=== PATIENT | female | born 1965 ===

== ENCOUNTER 2017-04-15 08:33 | Inpatient (IN) | payer MEDICARE, BC ==
--- NOTE | 2017-04-11 20:30 | Pre-op HX & Phy Repo 2 SIG ---
DATE OF ADMISSION: 04/15/2017 HISTORY OF PRESENT ILLNESS: The patient is a 52-year-old female in overall stable health with a malfunctioning Kock pouch continent ileostomy with difficulty with intubation that started acutely in early February 2017, as well as daily incontinence of stool and gas. The patient has a past history of ulcerative colitis that developed in 1981 and underwent proctocolectomy with Nisreen ileostomy in 1984. She underwent surgery to convert her malfunctioning conventional ileostomy to a Kock pouch in 1991. She usually would intubate two to four times a day using a 30-Maldivian Medena catheter and sleeping through the night and had no history of pouchitis. In 2009 she developed prolapse of the nipple valve, which she had to reduce manually including some difficulty with intubation and incontinence. In March 2016, she underwent laparotomy with creation of a new valve and stoma with preservation of her Kock pouch continent ileostomy and temporary catheter gastrostomy. She had a very prolonged ileus and required TPN and upper GI endoscopy revealing some distortion of the stomach from the gastrostomy that was relieved when the catheter was removed. She also had iron and vitamin B12 deficiency treated with replacement at that time. She had been doing well without any difficulties until early February 2017 when she could not catheterize for several days and developed nausea as well as some incontinence. C. difficile toxin was negative. CT scan was not helpful and pouchogram was negative. The patient, however, has continued to have these difficulties despite a pouch endoscopy performed on 03/02/2017, in [place] that showed no inflammation and the valve at that time appeared normal. The patient is going to undergo endoscopy of her pouch and surgical revision of her pouch as indicated. PAST MEDICAL HISTORY/MEDICATIONS: The patient has depression and bipolar disorder in the past and takes Lexapro 20mg daily and Provigil 200mg daily. She also has a bout of respiratory infection once a year and at those times uses Advair Diskus 100/50 mcg dose and ProAir HFA 90 mcg and Tessalon Perles 100 mg as needed. OPERATIONS: In addition to the above, she has undergone right salpingo-oophorectomy for a large ovarian cyst in 1988. ALLERGIES TO MEDICATIONS: None. REVIEW OF SYSTEMS: Bipolar disorder and depression, bulging cervical disk at C5-C6 and C6-C7 without impingement. Right trapezius rotator cuff injury in 2001, intermittent episodes of upper respiratory infections, thyroiditis in 2013. PHYSICAL EXAMINATION: VITAL SIGNS: The patient is 5 feet 2 inches and approximately 165 pounds. [place] and will be examined upon arrival and dictated separately. IMPRESSION: 1. 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 History of ulcerative colitis. 3. History of bipolar disorder and depression. 4. History of intermittent upper respiratory infections. 5. Status post multiple abdominal operations. 5.1. Proctocolectomy and Nisreen ileostomy in 1984. 5.2. Right salpingo-oophorectomy for ovarian cyst in 1988. 5.3. Kock pouch continent ileostomy in 1991. 5.4. Revision of Kock pouch with creation of new valve and stoma and temporary catheter gastrostomy on 04/05/2016. DISCUSSION: I have had a full discussion with the patient regarding the nature of her condition, the nature of the pouch endoscopy, which she has been through before without requiring any anesthesia or sedation, as well as the potential need for surgical revision to revise the slipped valve with preservation of her Kock pouch, which has a capacity of 750 mL. I will have another detailed discussion in person with the patient when she [place]. Misael Martin M.D. DR: KELLEN JOB#: [id number] CC: AURELIA
[~2017-04-15] VITALS: Ht 157.5 cm; Wt 72.6 kg
[~2017-04-15 08:33] MED LIST: ADVAIR 100-501 EACH INH; CLOBETASOL EMOL15 GM TP; COENZYME Q-10200 MG PO; COMPAZINE5 MG PO; DEPAKOTE125 MG PO; GUAIFENESIN DM118 M1 ORAL; LEXAPRO20 MG ORAL; MODAFINIL100 MG ORAL; PROAIR HFA8.5 GM INH; PYRIDOXINE HCL50 MG ORAL; TESSALON PERLE100 MG ORAL; TRANSDERM-SCOP1.5 MG TD; VITAMIN D1000 UNI1 ORAL
[2017-04-15 09:39] LABS: BASOPHILS % (AUTO) 0.8 % (0.0-2.0); EOSINOPHILS % (AUTO) 1.2 % (0.0-3.0); LYMPHOCYTES % (AUTO) 29.1 % (20.0-45.0); MEAN CORPUSCULAR HEMOGLOBIN 29.8 PG (27.0-31.0); MEAN CORPUSCULAR HGB CONC 31.9 G/DL (32.0-36.0); MEAN CORPUSCULAR VOLUME 93 FL (80-99); MEAN PLATELET VOLUME 6.2 FL (6.5-10.1); MONOCYTES % (AUTO) 7.4 % (1.0-10.0); NEUTROPHILS % (AUTO) 61.5 % (45.0-75.0); PLATELET COUNT 257 K/UL (150-450); RED BLOOD COUNT 4.52 M/UL (4.20-5.40); RED CELL DISTRIBUTION WIDTH 11.3 % (11.6-14.8); WHITE BLOOD COUNT 3.9 K/UL (4.8-10.8)
[2017-04-15 09:42] VITALS: BP 115/71
[2017-04-15 09:50] LABS: INR 1.1 (0.9-1.1)
[2017-04-15 09:54] LABS: ALANINE AMINOTRANSFERASE 13 U/L (3-33); ALBUMIN/GLOBULIN RATIO 1.3 (1.0-2.7); ANION GAP 11 (5-15); ASPARTATE AMINO TRANSFERASE 19 U/L (5-40); CALCIUM 9.9 mg/dL (8.6-10.2); CARBON DIOXIDE 28 mEQ/L (20-30); CHLORIDE 99 mEQ/L (98-107); CREATININE 0.9 mg/dL (0.5-0.9); GLOMERULAR FILTRATION RATE > 60 mL/min (>60); HEMOLYSIS 3; SODIUM 138 mEQ/L (135-145); TOTAL PROTEIN 7.7 g/dL (6.6-8.7)
[2017-04-15 09:55] LABS: HEMOLYSIS 3; IRON 137 ug/dL (37-145); TOTAL IRON BINDING CAPACITY 303 ug/dL (250-400)
[2017-04-15 10:05] LABS: FERRITIN 372 ng/mL (13-150)
[2017-04-15] MEDS ORDERED: MULTIVITAMINS1 EAC2 ORAL (10:07)
[2017-04-15] MEDS ORDERED: VITAMIN E OIL-V52 M1 PO (10:07)
[2017-04-15] MEDS ORDERED: CLOBETASOL EMOL15 GM TP (10:07)
[2017-04-15] MEDS ORDERED: VITAMIN C500 MG/11 PO (10:07)
[2017-04-15] MEDS ORDERED: ATORVASTATIN CA10 MG ORAL (10:07)
--- NOTE | 2017-04-15 11:25 | General Progress Note ---
Progress Note Progress Note H&P dictated. To have pouch endoscopy, prep for surgery in AM for probable Kock Pouch slipped valve Iron, ferritin all labs okay x B12 308 ([phone]) - will give B12 1000mcg IM x 1 WBC 3900 DIANE GREENE Apr 15, 2017 11:25
--- NOTE | 2017-04-15 11:25 | Pre-Procedure Note/Attestation ---
Pre-Procedure Note/Attestation Complete Prior to Procedure Planned Procedure: not applicable Procedure Narrative: Kock pouch endoscopy Indications for Procedure Pre-Operative Diagnosis: Malfunctioning Kock Pouch Attestation I attest that I discussed the nature of the procedure; its benefits; risks and complications; and alternatives (and the risks and benefits of such alternatives ), prior to the procedure, with the patient (or the patient's legal auto service representative). I attest that, if there was a reasonable possibility of needing a blood transfusion, the patient (or the patient's legal auto service representative) was given the [facility] Services standardized written summary, pursuant to the [place] Blood Safety Act ([place] Health and Safety Code # 1645, as amended). I attest that I re-evaluated the patient just prior to the surgery and that there has been no change in the patient's H&P, except as documented below:none DIANE GREENE Apr 15, 2017 11:25
[2017-04-15 11:54] VITALS: BP 113/69
[2017-04-15] MEDS ORDERED: Heparin 2000 units/Ns 1000ml INJ ONE (12:00)
[2017-04-15] MEDS ORDERED: Lidocaine 1% Plain 30 ml INJ ONE (12:00)
[2017-04-15] MEDS ORDERED: Vitamin B12 1000mcg/ml Inj IM ONE (12:00)
--- NOTE | 2017-04-15 12:25 | Brief Operative Note ---
Immediate Post Operative Note Operative Note Pre-op Diagnosis: Malfunctioning Kock Pouch Procedure: Kock pouch endoscopy Post-op Diagnosis: Kock Pouch slipped valve Post-op Diagnosis: same as pre-op Findings: consistent w/pre-op dx studies Surgeon: lorna Anesthesiologist: kane Anesthesia: other - none Specimen: none Complications: none Condition: stable Fluids: none Estimated Blood Loss: none Drains: other - 28 ferguson to Kock Pouch Implant(s) used?: DIANE Gracia Apr 15, 2017 12:25
[2017-04-15 12:43] LABS: APPEARANCE,URINE CLEAR; KETONES,URINE NEGATIVE (NEGATIVE); LEUKOCYTE ESTERASE ,URINE NEGATIVE (NEGATIVE); NITRITE,URINE NEGATIVE (NEGATIVE); PH,URINE 5 (4.5-8.0); PROTEIN,URINE NEGATIVE (NEGATIVE); UROBILINOGEN,URINE NORMAL MG/DL (0.0-1.0)
[2017-04-15] MEDS: Neomycin Sulfate 500mg Tab ORAL SCH ×3 (12:54→19:45)
--- NOTE | 2017-04-15 14:14 | Diagnostic Imaging Report ---
Indication: Dyspnea Comparison: 04/04/16 A single view chest radiograph was obtained. Findings: Bones are osteopenic. Lungs are clear. Heart size is normal. There is a left upper arm PICC line in the position. Impression: No acute disease
--- NOTE | 2017-04-15 14:21 | Diagnostic Imaging Report ---
Indication: vermin exterminator venous access Findings: After the indications, procedure, risks, complications, and alternatives of the procedure were explained, written informed consent was obtained. The left upper extremity was prepped with alcohol. All elements of maximal sterile barrier technique were followed including usage of a cap, mask, sterile gown, sterile gloves, hand hygiene and a large sterile sheet. Sonographic evaluation of the upper extremity was performed demonstrating a patent and compressible basilic vein. Access was obtained under real-time ultrasound guidance and digital image was saved and archived. An .018 wire was introduced. Needle exchanged for a 5 Tongan peel-away sheath. Measurements were obtained. A 5 Tongan dual-lumen Power PICC line catheter was cut to 40 cm and introduced over the wire. Peel-away sheath and wire were removed.Catheter was secured to the skin using 2-0 Prolene suture. Both ports aspirate and flush easily. Fluoroscopic Images show distal tip in the superior vena cava. Total fluoroscopic time 0.2 minutes. Impression: Successful placement of an upper extremity PICC line catheter
[2017-04-15] MEDS ORDERED: Tubing IV Secondary IV ONE (14:32)
[2017-04-15] MEDS ORDERED: NS Irrig 1000ml ONE (14:32)
[2017-04-15] MEDS ORDERED: NS 275ml ONE (14:32)
[2017-04-15 16:00] VITALS: BP 121/76
[2017-04-15] MEDS: D5 1/2NS w/KCl 20mEq 1,000 ML IV SCH (17:57)
[2017-04-15 20:12] VITALS: BP 112/70
--- NOTE | 2017-04-15 21:45 | Pre-op HX & Phy Repo 2 SIG ---
DATE OF ADMISSION: 04/15/2017 HISTORY OF PRESENT ILLNESS: The [place] now [place]. Please see previously dictated history. She continues to have intermittent difficulty with intubation of her Kock pouch continent ileostomy as well as incontinence of some stool and gas. PHYSICAL EXAMINATION: GENERAL: She is well developed and well nourished, in no distress, 5 feet 2 inches, 165 pounds. HEENT: Within normal limits. LUNGS: Clear. HEART: Regular rhythm. BREASTS: Without masses. ABDOMEN: Soft. There is a long midline incision scar and the stoma of the Kock pouch is somewhat high in the right lower quadrant. There is no evidence of abdominal wall hernia. PELVIC: Per primary care physician recently. RECTAL: Status post proctectomy. EXTREMITIES: Without edema or varicosities. Pulses 2+ femoral to pedal bilaterally. NEUROLOGIC: Physiologic. IMPRESSION: 1. Malfunctioning Kock pouch continent ileostomy with difficulty with intubation and incontinence. 2. History of ulcerative colitis. 3. History of bipolar disorder and depression. 4. History of intermittent yearly upper respiratory infections. 5. Status post multiple abdominal operations. 5.1. Proctocolectomy and Nisreen ileostomy in 1984. 5.2. Right salpingo-oophorectomy for ovarian cyst in 1988. 5.3. Kock pouch continent ileostomy in 1991. 5.4. Revision of Kock pouch with creation of new valve and stoma with temporary catheter gastrostomy 04/05/2016. PLAN AND DISCUSSION: The patient is going to undergo Kock pouch endoscopy, which will make the definitive diagnosis that she has a slipped or dessuscepted nipple valve. I have discussed with her the surgical options including laparotomy and probable takedown of the stoma and recreation and stabilization of the existing nipple valve of her Kock pouch. Her pouch has the capacity of 750 mL and if necessary a new valve will be created with relocation of the stoma if necessary and catheter gastrostomy. I have discussed the nature of the surgical options, indications, alternatives, and risks including bleeding, infection, injury to adjacent structures or organs, recurrent difficulties with the pouch or stoma that could lead to the need for additional surgery, deep vein thrombosis despite prophylaxis, etc. All questions have been answered. The patient understands and agrees to proceed. Don Torsten Martin DR: ANDRE JOB#: [id number] CC:
[2017-04-15] MEDS: Ampicillin/Sulbactam Sod 3 GM in NS 110 ML IV SCH (23:16)
[2017-04-15] MEDS: metroNIDAZOLE 500mg 100 ML IV SCH (23:16)
--- NOTE | 2017-04-15 23:45 | Procedure Note ---
DATE OF PROCEDURE: 04/15/2017 ENDOSCOPY REPORT ENDOSCOPIST: Misael Martin M.D. ANESTHESIA: None. SEDATION: None. PREENDOSCOPY DIAGNOSES: 1. Malfunctioning Kock pouch continent ileostomy with difficulty with intubation and incontinence. 2. History of ulcerative colitis. 3. Status post multiple abdominal operations. 3.1. Proctocolectomy and Nisreen ileostomy in 1984. 3.2. Right salpingo-oophorectomy for ovarian cyst in 1988. 3.3. Kock pouch continent ileostomy in 1991. 3.4. Revision of Kock pouch with creation of new valve and stoma with temporary catheter gastrostomy on 04/05/2016. POSTENDOSCOPY DIAGNOSES: 1. Malfunctioning Kock pouch continent ileostomy with difficulty with intubation and incontinence. 2. History of ulcerative colitis. 3. Status post multiple abdominal operations. 3.1. Proctocolectomy and Nisreen ileostomy in 1984. 3.2. Right salpingo-oophorectomy for ovarian cyst in 1988. 3.3. Kock pouch continent ileostomy in 1991. 3.4. Revision of Kock pouch with creation of new valve and stoma with temporary catheter gastrostomy on 04/05/2016. ENDOSCOPY PERFORMED: Kock pouch endoscopy. FINDINGS: A partially slipped nipple valve. DESCRIPTION OF PROCEDURE: The patient was positioned supine in the GI lab without any sedation or anesthesia given or required. Using a GIF-P140 endoscope, the stoma in the right lower quadrant was entered. There is elongation and redundancy of the access segment with redundant mucosal folds within the distal access segment and the valve segment. The distance to the tip of the valve is 11 cm, at least 3 to 4 cm redundant. The pouch was distensible and of very large capacity. The mucosa appears normal. Retroflexed views revealed a partially slipped valve, which at times slips more on the antimesenteric border and other times looks circumferentially formed, but measuring only 2 to 3 cm instead of the minimum 5 cm. Withdrawal views confirmed the above findings. After removal of the endoscope, I was able to insert a 28-[place]izen [place] Cuellar into the pouch for decompression and secured it to the skin with tape and connected to a gravity drainage bag. The patient will be prepared for laparotomy and revision of the Kock pouch in the morning. The patient tolerated the endoscopy well. Misael Martin M.D. DR: ANDRE JOB#: [id number] CC: AURELIA
[2017-04-16] VITALS (15 sets, daily range): BP systolic 99–123; BP diastolic 56–77
[2017-04-16] MEDS: D5 1/2NS w/KCl 20mEq 1,000 ML IV SCH ×2 (04:00→14:00)
[2017-04-16] MEDS: Dyna-Hex 2% Top Sol 8oz TOPIC SCH ×2 (05:31→19:54)
[2017-04-16] MEDS: Ampicillin/Sulbactam Sod 3 GM in NS 110 ML IV SCH ×4 (05:32→23:15)
[2017-04-16] MEDS: metroNIDAZOLE 500mg 100 ML IV SCH ×4 (05:32→23:15)
[2017-04-16] MEDS ORDERED: Bacitracin 50000 Units Vial ONE (07:05)
[2017-04-16] MEDS ORDERED: NeoSporin Gu Irrig 1ml Amp IRRIG ONE (07:05)
[2017-04-16] MEDS ORDERED: Heparin 5000 units/ml inj SUBQ ONE ×2 (08:00→10:00)
[2017-04-16] MEDS: Modafinil 100mg tab ORAL SCH (08:38)
--- NOTE | 2017-04-16 09:06 | Pre-Procedure Note/Attestation ---
Pre-Procedure Note/Attestation Complete Prior to Procedure Planned Procedure: not applicable Procedure Narrative: laparotomy with revision of Kock Pouch, possible gastrostomy Indications for Procedure Pre-Operative Diagnosis: Malfunctioning Kock Pouch Attestation I attest that I discussed the nature of the procedure; its benefits; risks and complications; and alternatives (and the risks and benefits of such alternatives ), prior to the procedure, with the patient (or the patient's legal fuels sales representative). I attest that, if there was a reasonable possibility of needing a blood transfusion, the patient (or the patient's legal fuels sales representative) was given the [facility] standardized written summary, pursuant to the [place] Blood Safety Act ([place] Health and Safety Code # 1645, as amended). I attest that I re-evaluated the patient just prior to the surgery and that there has been no change in the patient's H&P, except as documented below:none DIANE GREENE Apr 16, 2017 09:06
[2017-04-16] MEDS ORDERED: Dexamethasone 4mg/ml vial ONE (10:00)
[2017-04-16] MEDS ORDERED: Propofol 1,000mg/ 100ml btl IV ONE (10:00)
[2017-04-16] MEDS ORDERED: Neostigmine 1mg/ml 10ml Inj ONE (10:00)
[2017-04-16] MEDS ORDERED: LR 1000ml ONE (10:00)
[2017-04-16] MEDS ORDERED: Midazolam 2mg/2ml Inj ONE (10:00)
[2017-04-16] MEDS ORDERED: fentaNYL 100 mcg/2 mL IV ONE (10:00)
[2017-04-16] MEDS ORDERED: Glycopyrrolate 0.2mg/ml 1ml Vial ONE (10:00)
[2017-04-16] MEDS ORDERED: NS Irrig 1000ml ONE (10:00)
[2017-04-16] MEDS ORDERED: Zemuron 50mg/5ml Inj IV ONE (10:00)
[2017-04-16] MEDS ORDERED: Lidocaine 1% MPF 10mg/ml 5ml ONE (10:00)
[2017-04-16] MEDS ORDERED: LR 1000ml 1,000 ML IVLG SCH (10:44)
--- NOTE | 2017-04-16 10:44 | Anethesia Preoperative Eval ---
Anesthesia Pre-op PMH/ROS General Date of Evaluation: Apr 16, 2017 Time of Evaluation: 10:06 Anesthesiologist: Ajit ASA Score: ASA 3 Mallampati Score Class I : Soft palate, uvula, fauces, pillars visible Class II: Soft palate, uvula, fauces visible Class III: Soft palate, base of uvula visible Class IV: Only hard plate visible Mallampati Classification: Class II Surgeon: Veronica Diagnosis: Malfxn Jaquez Pouch Surgical Procedure: Laparotomy, Revision Jaquez Pouch Anesthesia History: none Family History: no anesthesia problems Allergies: Coded Allergies: No Known Allergies (Unverified , 04/04/16) no known allergies Medications: see eMAR Past Medical History Cardiovascular: Reports: other - HL Pulmonary: Reports: other - Bronchitis Gastrointestinal/Genitourinary: Reports: other - Colitis, Jaquez Pouch, Fatty Liver Other: obesity - BMI 30 PSxH Narrative: Appendectomy, Jaquez Pouch Anesthesia Pre-op Phys. Exam Physician Exam Last Vital Signs Date Time Temp Pulse Resp B/P (MAP) Pulse Ox O2 Delivery O2 Flow Rate FiO2 04/16/17 08:00 97.8 55 18 99/56 99 Room Air Constitutional: NAD Neurologic: CN 2-12 intact Cardiovascular: RRR Respiratory: CTA Gastrointestinal: S/NT/ND Airway Exam Mallampati Score: Class II MO: limited ROM: limited Teeth: intact Anesthesia Pre-op A/P Risk Assessment & Plan Assessment: ASA 3 Plan: GA, BIS, Glidescope Status Change Before Surgery: No Pre-Antibiotics Drug: Unasyn 3 Grams, Flagyl 500 mg IV Given Within 1 Hr of Incision: Yes Time Given: 12:00 Gwyn Fong MD Apr 16, 2017 10:44
[2017-04-16] MEDS ORDERED: Ketorolac 30mg Inj IV PRN (10:45)
[2017-04-16] MEDS ORDERED: DiphenhydrAMINE 50mg/ml Inj IVP PRN ×2 (10:45→14:30)
[2017-04-16] MEDS ORDERED: Midazolam 2mg/2ml Inj IVP PRN (10:45)
[2017-04-16] MEDS ORDERED: fentaNYL 100 mcg/2 mL IV PRN (10:45)
[2017-04-16] MEDS ORDERED: Norco 5mg/325mg tab ORAL PRN (10:45)
[2017-04-16] MEDS ORDERED: Norco 7.5mg/325mg tab ORAL PRN (10:45)
[2017-04-16] MEDS ORDERED: Meperidine 25mg/0.5ml Inj (FOR RIGORS ONLY) IV PRN (10:45)
[2017-04-16] MEDS ORDERED: oxyCODONE HCL/Acetaminophen 5/325mg ORAL PRN (10:45)
[2017-04-16] MEDS ORDERED: Metoclopramide 10mg/2ml Inj IVP PRN (10:45)
[2017-04-16] MEDS ORDERED: Atropine Inj 1mg/10ml Syr IV PRN (10:45)
[2017-04-16] MEDS ORDERED: Hydromorphone 0.5mg/0.5ml inj IVP PRN (10:45)
[2017-04-16] MEDS ORDERED: LORazepam Inj 2mg/ml 1ml IV PRN (10:45)
[2017-04-16] MEDS ORDERED: Ketorolac 60mg Inj IV PRN (10:45)
--- NOTE | 2017-04-16 10:45 | Immediate Post-Op Evaluation ---
Immediate Post-Op Evalulation Immediate Post-Op Evalulation Procedure: Laparotomy, Revision Jaquez Pouch Date of Evaluation: Apr 16, 2017 Time of Evaluation: 14:30 IV Fluids: 1600 LR Blood Products: 0 Estimated Blood Loss: 50 Urinary Output: 200 Blood Pressure Systolic: 114 Blood Pressure Diastolic: 81 Pulse Rate: 77 Respiratory Rate: 16 O2 Sat by Pulse Oximetry: 100 Temperature (Fahrenheit): 97.8 Pain Score (1-10): 2 Nausea: No Vomiting: No Complications 0 Patient Status: awake, reacts, patent, none Drug: Unasyn 3 Grams, Flagyl 500 mg IV Given Within 1 Hr of Incision: Yes Time Given: 12:00 Gwyn Fong MD Apr 16, 2017 10:45
[2017-04-16] MEDS ORDERED: metroNIDAZOLE 500mg 100 ML IV SCH (12:00)
[2017-04-16] MEDS ORDERED: Ampicillin/Sulbactam Sod 3 GM in NS 110 ML IV SCH (14:00)
--- NOTE | 2017-04-16 14:26 | Brief Operative Note ---
Immediate Post Operative Note Operative Note Pre-op Diagnosis: Malfunctioning Kock Pouch Procedure: laparotomy and revision of Kock pouch; gastrostomy Post-op Diagnosis: malfunctioning Kock pouch Post-op Diagnosis: same as pre-op Findings: consistent w/pre-op dx studies Surgeon: lorna Wildland Firefighter: raleigh Anesthesiologist: sarika Anesthesia: general Specimen: yes - Kock pouch stoma Complications: none Condition: stable Fluids: see anesthesia record Estimated Blood Loss: volume - 100ml Drains: other - 28 ferguson Kock pouch; 18 fr gastrostomy Implant(s) used?: No DIANE GREENE Apr 16, 2017 14:26
[2017-04-16] MEDS ORDERED: PCA HYDROmorphone 1mg/ml 30 ML IV PRN (14:30)
[2017-04-16] MEDS ORDERED: LORazepam 1mg tab SL PRN ×2 (14:30)
[2017-04-16] MEDS ORDERED: PCA Education Pamphlet MISC ONE (14:30)
[2017-04-16] MEDS ORDERED: Naloxone 0.4mg/ml Inj IVP PRN (14:30)
[2017-04-16] MEDS ORDERED: Rate Change PCA 1 Each MISC PRN (14:30)
[2017-04-16] MEDS ORDERED: Tubing IV Secondary IV ONE (16:54)
[2017-04-16] MEDS ORDERED: Acetaminophen 650mg/20.3ml GT PRN (18:00)
[2017-04-16] MEDS: D5 1/4NS w/KCl 20mEq 1,000 ML IV SCH (18:33)
[2017-04-16] MEDS: PCA shift volume MISC SCH (19:07)
[2017-04-16] MEDS ORDERED: Dyna-Hex 2% Top Sol 8oz TOPIC SCH (21:00)
[2017-04-17] VITALS (7 sets, daily range): BP systolic 126–139; BP diastolic 56–83
--- NOTE | 2017-04-17 00:30 | Operative Note - Dictated ---
DATE OF OPERATION: 04/16/2017 SURGEON: Misael Martin M.D. STRAIGHTENING MACHINE OPERATOR SURGEON: Anirudh Herrera M.D. ANESTHESIOLOGIST: Gwyn Fong M.D. TYPE OF ANESTHESIA: General endotracheal. PREOPERATIVE DIAGNOSES: 1. Malfunctioning Kock pouch continent ileostomy with dessusception of the nipple valve and redundant access segment. 2. History of ulcerative colitis. 3. Status post multiple abdominal operations. 3.1. Proctocolectomy and Nisreen ileostomy in 1984. 3.2. Right salpingo-oophorectomy for ovarian cyst in 1988. 3.3. Kock pouch continent ileostomy in 1991. 3.4. Revision of Kock pouch with creation of new valve and stoma 04/05/2016 POSTOPERATIVE DIAGNOSES: 1. Malfunctioning Kock pouch continent ileostomy with dessusception of the nipple valve and redundant access segment. 2. History of ulcerative colitis. 3. Status post multiple abdominal operations. 3.1. Proctocolectomy and Nisreen ileostomy in 1984. 3.2. Right salpingo-oophorectomy for ovarian cyst in 1988. 3.3. Kock pouch continent ileostomy in 1991. 3.4. Revision of Kock pouch with creation of new valve and stoma 04/05/2016 OPERATION PERFORMED: Laparotomy with revision of Kock pouch slipped valve and catheter gastrostomy and revision of the stoma. DESCRIPTION OF PROCEDURE: The patient was taken to the operating room and under general endotracheal anesthesia with sequential compression device stockings in place and having received intravenous antibiotics and subcutaneous heparin, she was prepped and draped in the usual fashion. Previous midline incision was reopened initially from just above the umbilicus to the pubis, but because of severe diffuse adhesions the incision was extended into the epigastrium excising the skin scar. Prolonged dissection of adhesions was required to finally liberate the pouch from the pelvis where it was densely adherent to the bladder. The bladder and ureters were protected and avoided. The stoma in the right lower quadrant was circumscribed with a transversely oriented elliptical incision and brought down into the abdominal cavity. A slight disruption of the access segment was present, which was closed with continuous 2-0 PDS locking suture. A 28-Lebanese Cuellar catheter was manipulated into the pouch. It was obvious that the access segment was quite redundant. A dissection revealed the afferent bowel. A pouch enterotomy was created between stay sutures along the previous pouch suture line. Now the nipple valve could be grasped with [place] clamps and reformed measuring 5.5 cm. Two rows of kristi using the PI 55 stapling device with 4.8 mm kristi were placed 90 degrees away from the mesentery. Then, a separate small pouch enterotomy was created and the stapler placed with the lower blade through the enterotomy and into the lumen of the valve and then the stapler fired to staple the valve to the anterior pouch wall. The small enterotomy was closed with continuous full thickness 2-0 chromic locking suture, followed by imbricating 3-0 silk sutures. The pouch enterotomy was closed with continuous 2-0 chromic full thickness locking suture. With the afferent bowel manually occluded, the pouch was distended with 550 mL of saline. There was no extravasation. When the catheter was removed, there was no incontinence. The catheter was reintroduced and the pouch decompressed. The enterotomy closure was now closed with a second layer of interrupted 3-0 silk imbricating sutures. The access segment and stoma brought through the abdominal wall at the same location and the pouch anchored to the peritoneum with 3-0 Vicryl. The stoma site was narrowed medially with a 4-0 Monocryl subcuticular suture. Then the redundancy of the access segment was excised and the new stoma primarily matured with continuous 2-0 chromic locking suture starting at the 3 and 9 o'clock positions. The 28-Lebanese Cuellar was appropriately positioned in the pouch, marked at the level of the stoma with a 3-0 silk and then the catheter sutured to the skin with two sutures of 2-0 silk. It was flushed and connected to a gravity drainage bag. In view of the prolonged dissection, I felt decompression with a catheter gastrostomy was required. Through a separate stab incision in the left upper quadrant, an 18-Lebanese Cuellar catheter was brought through the abdominal wall. Previous gastrostomy site was taken down. A new site was chosen more proximally on the fundus of the stomach and the 18-Leb[place] Cuellar catheter introduced between two concentric 2-0 chromic pursestring sutures with the balloon inflated, positioned in the fundus, and the stomach sutured to the anterior abdominal wall with multiple interrupted 3-0 silk sutures. The catheter was flushed and connected to a gravity drainage bag. The catheter was sutured to the skin with a 2-0 silk suture. The abdomen and pelvis were inspected and hemostasis was secure. The upper abdomen was concealed by adhesions and there was no abnormality in the pelvis to palpation. The midline incision was then closed in one layer with continuous #1 Prolene inverting the knots. Subcutaneous tissues were irrigated with antibiotic solution and the abdominal wall had been protected throughout the procedure with antibiotic soaked lap sponges. The skin was closed with kristi. Dry sterile dressings were applied. Final sponge and needle counts were correct. The patient tolerated the procedure well and left the operating room in stable condition. Misael Martin M.D. DR: aMnuel JOB#: [id number] CC: AURELIA
[2017-04-17 05:01] LABS: BASOPHILS % (AUTO) 0.1 % (0.0-2.0); MEAN CORPUSCULAR HEMOGLOBIN 31.6 PG (27.0-31.0); MEAN CORPUSCULAR VOLUME 93 FL (80-99); MEAN PLATELET VOLUME 6.2 FL (6.5-10.1); MONOCYTES % (AUTO) 7.7 % (1.0-10.0); NEUTROPHILS % (AUTO) 83.2 % (45.0-75.0); PLATELET COUNT 184 K/UL (150-450); RED BLOOD COUNT 3.83 M/UL (4.20-5.40); RED CELL DISTRIBUTION WIDTH 11.5 % (11.6-14.8); WHITE BLOOD COUNT 10.3 K/UL (4.8-10.8)
[2017-04-17] MEDS: Ampicillin/Sulbactam Sod 3 GM in NS 110 ML IV SCH ×3 (05:20→17:54)
[2017-04-17] MEDS: metroNIDAZOLE 500mg 100 ML IV SCH ×3 (05:20→17:54)
[2017-04-17] MEDS: D5 1/4NS w/KCl 20mEq 1,000 ML IV SCH ×2 (05:21→17:54)
[2017-04-17 05:41] LABS: ANION GAP 10 (5-15); CALCIUM 8.7 mg/dL (8.6-10.2); CARBON DIOXIDE 26 mEQ/L (20-30); CHLORIDE 105 mEQ/L (98-107); CREATININE 0.7 mg/dL (0.5-0.9); GLOMERULAR FILTRATION RATE > 60 mL/min (>60); HEMOLYSIS 1; POTASSIUM 4.1 mEQ/L (3.4-4.9); SODIUM 141 mEQ/L (135-145)
[2017-04-17] MEDS: PCA shift volume MISC SCH ×2 (07:00→19:00)
[2017-04-17] MEDS: Modafinil 100mg tab ORAL SCH (08:31)
--- NOTE | 2017-04-17 11:01 | 48 Hour Post Anesthesia Eval ---
Post Anesthesia Evaluation Procedure: Laparotomy, Revision Jaquez Pouch Date of Evaluation: Apr 17, 2017 Time of Evaluation: 11:00 Blood Pressure Systolic: 136 0: 72 Pulse Rate: 68 Respiratory Rate: 20 Temperature (Fahrenheit): 97.6 O2 Sat by Pulse Oximetry: 98 Airway: patent Nausea: No Vomiting: No Pain Intensity: 3 Hydration Status: adequate Cardiopulmonary Status: stable Mental Status/LOC: patient returned to baseline Follow-up Care/Observations: n/a Post-Anesthesia Complications: none Follow-up care needed: N/A EMBER HILL M.D. Apr 17, 2017 11:01
[2017-04-17] MEDS ORDERED: TransDerm Scop 1mg/72HR Patch TDERMAL STA (12:30)
[2017-04-17] MEDS ORDERED: Naloxone 0.4mg/ml Inj IVP PRN (12:33)
--- NOTE | 2017-04-17 12:36 | General Progress Note ---
Progress Note Progress Note AVSS c/o nausea despite Zofran + Compazine (Reglan interacts with psych meds). Pain controlled with dilaudid CHANGE CONTROL SPECIALIST no basal Chest - decreased expansion Cor - reg rhythm Abdomen distended, incision clean, stoma pink 12 hrs overnight: urine 500 Gastrostomy 60 Kock pouch ileo 5 serosang WBC 10,300 Hgb 12.1 BUN 10 Cr 0.7 IMp. Atelectasis Ileus Nausaa Plan: NPO add scopolamine transderm for nausea f/u labs mobilize DIANE GREENE Apr 17, 2017 12:36
[2017-04-17] MEDS ORDERED: Rate Change PCA 1 Each MISC PRN (12:45)
[2017-04-17] MEDS ORDERED: TransDerm Scop 1.5mg/72HR Patch TDERMAL STA (13:17)
[2017-04-17] MEDS: TransDerm Scop 1mg/72HR Patch TDERMAL SCH (13:30)
[2017-04-17] MEDS ORDERED: DiphenhydrAMINE 50mg/ml Inj IVP PRN (14:30)
[2017-04-17] MEDS: PCA HYDROmorphone 1mg/ml 30 ML IV PRN (14:57)
[2017-04-17] MEDS: Dyna-Hex 2% Top Sol 8oz TOPIC SCH (21:23)
[2017-04-18] MEDS: Ampicillin/Sulbactam Sod 3 GM in NS 110 ML IV SCH ×4 (00:17→17:22)
[2017-04-18] MEDS: metroNIDAZOLE 500mg 100 ML IV SCH ×4 (00:17→17:22)
[2017-04-18 00:47] VITALS: BP 131/83
[2017-04-18 04:00] VITALS: BP 130/81
[2017-04-18] MEDS: D5 1/4NS w/KCl 20mEq 1,000 ML IV SCH ×2 (05:29→17:22)
[2017-04-18 05:49] LABS: BASOPHILS % (AUTO) 0.2 % (0.0-2.0); EOSINOPHILS % (AUTO) 0.1 % (0.0-3.0); MEAN CORPUSCULAR HEMOGLOBIN 30.3 PG (27.0-31.0); MEAN CORPUSCULAR HGB CONC 32.8 G/DL (32.0-36.0); MEAN CORPUSCULAR VOLUME 92 FL (80-99); MEAN PLATELET VOLUME 5.9 FL (6.5-10.1); MONOCYTES % (AUTO) 6.1 % (1.0-10.0); NEUTROPHILS % (AUTO) 84.5 % (45.0-75.0); PLATELET COUNT 161 K/UL (150-450); RED BLOOD COUNT 3.77 M/UL (4.20-5.40); RED CELL DISTRIBUTION WIDTH 11.7 % (11.6-14.8); WHITE BLOOD COUNT 9.9 K/UL (4.8-10.8)
[2017-04-18] MEDS: PCA shift volume MISC SCH ×2 (07:00→19:00)
[2017-04-18 07:10] LABS: ANION GAP 10 (5-15); CALCIUM 9.1 mg/dL (8.6-10.2); CARBON DIOXIDE 29 mEQ/L (20-30); CHLORIDE 101 mEQ/L (98-107); CREATININE 0.6 mg/dL (0.5-0.9); GLOMERULAR FILTRATION RATE > 60 mL/min (>60); SODIUM 140 mEQ/L (135-145)
--- NOTE | 2017-04-18 07:21 | General Progress Note ---
Progress Note Progress Note AVSS Nausea improved with Zofran, scop. transderm and Compazine. Chest cleat with decreased expansion Abdomen distended, soft, stoma pink, incision clean Urine 2450 Gastrostomy 150 Kock pouch ileo - scant WBC 9900 Hgb 11.4 BUN 4 Cr 0.6 Imp. Ileus Plan: Increase Compazine to 10mg IV q6h prn Add Torado 15mg IV q6h to reduce need for Dilaudid and decrease nausea PT mobility protocol NPO f/u labs DIANE GREENE Apr 18, 2017 07:21
[2017-04-18] MEDS ORDERED: Ketorolac 30mg Inj IV PRN (07:30)
[2017-04-18] MEDS ORDERED: Ketorolac 30mg Inj IV ONE (07:45)
[2017-04-18 08:00] VITALS: BP 127/77
[2017-04-18] MEDS: Modafinil 100mg tab ORAL SCH (09:18)
[2017-04-18 11:45] VITALS: BP 112/64
[2017-04-18] MEDS: PCA HYDROmorphone 1mg/ml 30 ML IV PRN (15:04)
[2017-04-18 16:00] VITALS: BP 105/66
[2017-04-18 20:37] VITALS: BP 116/63
[2017-04-18] MEDS: Dyna-Hex 2% Top Sol 8oz TOPIC SCH (20:39)
[2017-04-18] MEDS: Ketorolac 30mg Inj IV PRN (22:21)
[2017-04-19 00:02] VITALS: BP 120/73
[2017-04-19] MEDS: Ampicillin/Sulbactam Sod 3 GM in NS 110 ML IV SCH ×4 (00:14→17:31)
[2017-04-19] MEDS: metroNIDAZOLE 500mg 100 ML IV SCH ×4 (00:14→17:30)
[2017-04-19 04:27] VITALS: BP 113/70
[2017-04-19] MEDS: D5 1/4NS w/KCl 20mEq 1,000 ML IV SCH ×2 (05:13→17:31)
[2017-04-19 05:23] LABS: BASOPHILS % (AUTO) 0.2 % (0.0-2.0); EOSINOPHILS % (AUTO) 0.3 % (0.0-3.0); LYMPHOCYTES % (AUTO) 13.7 % (20.0-45.0); MEAN CORPUSCULAR VOLUME 94 FL (80-99); MEAN PLATELET VOLUME 5.7 FL (6.5-10.1); NEUTROPHILS % (AUTO) 79.8 % (45.0-75.0); PLATELET COUNT 156 K/UL (150-450); RED BLOOD COUNT 3.36 M/UL (4.20-5.40); RED CELL DISTRIBUTION WIDTH 11.4 % (11.6-14.8); WHITE BLOOD COUNT 7.4 K/UL (4.8-10.8)
[2017-04-19 05:50] LABS: ANION GAP 9 (5-15); CALCIUM 8.8 mg/dL (8.6-10.2); CARBON DIOXIDE 32 mEQ/L (20-30); CHLORIDE 99 mEQ/L (98-107); CREATININE 0.6 mg/dL (0.5-0.9); GLOMERULAR FILTRATION RATE > 60 mL/min (>60); HEMOLYSIS 1; POTASSIUM 3.5 mEQ/L (3.4-4.9); SODIUM 140 mEQ/L (135-145)
[2017-04-19] MEDS: PCA shift volume MISC SCH ×2 (07:29→19:00)
[2017-04-19 08:00] VITALS: BP 125/75
[2017-04-19] MEDS: Modafinil 100mg tab ORAL SCH (08:04)
[2017-04-19] MEDS: Ketorolac 30mg Inj IV PRN (09:03)
[2017-04-19] MEDS ORDERED: NS 550ML IV ONE (09:49)
[2017-04-19] MEDS ORDERED: Tubing IV Secondary IV ONE ×2 (09:49→16:05)
[2017-04-19] MEDS ORDERED: NS Irrig 1000ml ONE (09:49)
--- NOTE | 2017-04-19 10:06 | General Progress Note ---
Progress Note Progress Note AVSS Ambulates in hallways with PT assistance/walker Abdomen soft, mildly distended, incision clean, stoma pink Urine 1625 Gastrostomy 1040 Kock pouch ileo 10 serosang WBC 7400 hgb down 10.4 BMP - wnl Imp. Ileus Plan: NPO f/u labs Nexium IV (takes Pepcid BID at home) continue Cuellar - pelvic dissection NOTE: patient likely has clinical peritonitis due to bowel being open for a prolonged period of time during surgery - will give therapeutic course of antibiotics DIANE GREENE Apr 19, 2017 10:06
[2017-04-19] MEDS ORDERED: DiphenhydrAMINE 50mg/ml Inj IVP PRN (10:30)
[2017-04-19] MEDS ORDERED: PCA HYDROmorphone 1mg/ml 30 ML IV PRN (10:30)
[2017-04-19] MEDS ORDERED: Naloxone 0.4mg/ml Inj IVP PRN (10:30)
[2017-04-19] MEDS ORDERED: Rate Change PCA 1 Each MISC PRN (10:30)
[2017-04-19 12:00] VITALS: BP 115/64
[2017-04-19] MEDS: Esomeprazole sodium 40mg vial IVP SCH (12:18)
--- NOTE | 2017-04-19 12:56 | Cardiology Report ---
APPROVED REPORT EKG Measurement Heart [id number] Normal sinus rhythm Normal ECG
[2017-04-19 16:00] VITALS: BP 120/64
[2017-04-19] MEDS ORDERED: Sterile Water Irrig 1000ml IRRIG ONE (16:05)
[2017-04-19 20:05] VITALS: BP 110/55
[2017-04-19] MEDS: Dyna-Hex 2% Top Sol 8oz TOPIC SCH (21:16)
[2017-04-20 00:02] VITALS: BP 116/67
[2017-04-20] MEDS: Ampicillin/Sulbactam Sod 3 GM in NS 110 ML IV SCH ×5 (01:05→23:46)
[2017-04-20] MEDS: metroNIDAZOLE 500mg 100 ML IV SCH ×5 (01:05→23:46)
[2017-04-20 04:02] LABS: BASOPHILS % (AUTO) 0.3 % (0.0-2.0); EOSINOPHILS % (AUTO) 1.3 % (0.0-3.0); LYMPHOCYTES % (AUTO) 23.7 % (20.0-45.0); MEAN CORPUSCULAR HEMOGLOBIN 31.5 PG (27.0-31.0); MEAN CORPUSCULAR HGB CONC 33.7 G/DL (32.0-36.0); MEAN CORPUSCULAR VOLUME 93 FL (80-99); MONOCYTES % (AUTO) 8.4 % (1.0-10.0); NEUTROPHILS % (AUTO) 66.4 % (45.0-75.0); PLATELET COUNT 156 K/UL (150-450); RED BLOOD COUNT 3.13 M/UL (4.20-5.40); RED CELL DISTRIBUTION WIDTH 11.5 % (11.6-14.8); WHITE BLOOD COUNT 4.8 K/UL (4.8-10.8)
[2017-04-20 04:05] VITALS: BP 120/70
[2017-04-20 04:31] LABS: ANION GAP 8 (5-15); CALCIUM 8.9 mg/dL (8.6-10.2); CARBON DIOXIDE 30 mEQ/L (20-30); CHLORIDE 98 mEQ/L (98-107); CREATININE 0.7 mg/dL (0.5-0.9); GLOMERULAR FILTRATION RATE > 60 mL/min (>60); HEMOLYSIS 3; POTASSIUM 3.3 mEQ/L (3.4-4.9); SODIUM 136 mEQ/L (135-145)
[2017-04-20] MEDS: D5 1/4NS w/KCl 20mEq 1,000 ML IV SCH (04:37)
[2017-04-20 04:53] LABS: IRON 43 ug/dL (37-145)
[2017-04-20] MEDS: PCA shift volume MISC SCH ×2 (07:00→19:00)
[2017-04-20] MEDS: Esomeprazole sodium 40mg vial IVP SCH (08:29)
[2017-04-20 08:30] VITALS: BP 117/66
[2017-04-20] MEDS: Modafinil 100mg tab ORAL SCH (08:45)
--- NOTE | 2017-04-20 08:48 | General Progress Note ---
Progress Note Progress Note AVSS Doing well with ambulation, less nausea Abdomen mildly distended, healing nicely Urine 2450 Gastrostomy 350 (down) Kock pouch ileo small amount enteric this AM Hgb down 9.9 K 3.3 Irofn 43 (37-145) Imp. Ileus Anemia with low serum iron Plan: NPO Venofer 100mg IV daily x 5 Increase KCL in IV fluids f/u labs leave Cuellar until tomorrow (diuresing) DIANE GREENE Apr 20, 2017 08:48
[2017-04-20] MEDS ORDERED: PCA HYDROmorphone 1mg/ml 30 ML IV PRN (09:00)
[2017-04-20] MEDS ORDERED: Naloxone 0.4mg/ml Inj IVP PRN (09:00)
[2017-04-20] MEDS ORDERED: DiphenhydrAMINE 50mg/ml Inj IVP PRN (09:00)
[2017-04-20] MEDS ORDERED: Rate Change PCA 1 Each MISC PRN (09:00)
[2017-04-20] MEDS: Potassium Chloride 40 MEQ in D5 1/4NS 1000ml 1,000 ML IV SCH ×2 (11:01→23:46)
[2017-04-20 12:00] VITALS: BP 101/59
[2017-04-20] MEDS: TransDerm Scop 1mg/72HR Patch TDERMAL SCH (13:30)
[2017-04-20] MEDS ORDERED: Sterile Water Irrig 1000ml IRRIG ONE (15:52)
[2017-04-20 20:30] VITALS: BP 119/66
[2017-04-20] MEDS: Dyna-Hex 2% Top Sol 8oz TOPIC SCH (20:46)
[2017-04-20] MEDS: Iron Sucrose 100 MG in NS 55 ML IVPB SCH (20:47)
[2017-04-20] MEDS: Ketorolac 30mg Inj IV PRN (20:47)
[2017-04-21] VITALS: BP 97/59
[2017-04-21 04:00] VITALS: BP 112/67
[2017-04-21] MEDS: Ampicillin/Sulbactam Sod 3 GM in NS 110 ML IV SCH (06:23)
[2017-04-21] MEDS: metroNIDAZOLE 500mg 100 ML IV SCH (06:23)
[2017-04-21 06:57] LABS: BASOPHILS % (AUTO) 0.3 % (0.0-2.0); EOSINOPHILS % (AUTO) 2.3 % (0.0-3.0); LYMPHOCYTES % (AUTO) 29.1 % (20.0-45.0); MEAN CORPUSCULAR HEMOGLOBIN 30.4 PG (27.0-31.0); MEAN CORPUSCULAR HGB CONC 32.2 G/DL (32.0-36.0); MEAN CORPUSCULAR VOLUME 95 FL (80-99); MEAN PLATELET VOLUME 7.1 FL (6.5-10.1); MONOCYTES % (AUTO) 10.8 % (1.0-10.0); NEUTROPHILS % (AUTO) 57.5 % (45.0-75.0); PLATELET COUNT 161 K/UL (150-450); RED CELL DISTRIBUTION WIDTH 11.7 % (11.6-14.8); WHITE BLOOD COUNT 3.7 K/UL (4.8-10.8)
[2017-04-21] MEDS: PCA shift volume MISC SCH (07:00)
[2017-04-21 07:21] LABS: ANION GAP 10 (5-15); CARBON DIOXIDE 29 mEQ/L (20-30); CHLORIDE 102 mEQ/L (98-107); CREATININE 0.6 mg/dL (0.5-0.9); GLOMERULAR FILTRATION RATE > 60 mL/min (>60); HEMOLYSIS 9; POTASSIUM 3.8 mEQ/L (3.4-4.9); SODIUM 141 mEQ/L (135-145)
[2017-04-21 08:00] VITALS: BP_SYST 117; BP_SYST 140; BP_DIAS 68; BP_DIAS 84
[2017-04-21] MEDS: Modafinil 100mg tab ORAL SCH (09:03)
[2017-04-21] MEDS: Dyna-Hex 2% Top Sol 8oz TOPIC SCH (09:03)
[2017-04-21] MEDS: Esomeprazole sodium 40mg vial IVP SCH (09:03)
--- NOTE | 2017-04-21 09:53 | General Progress Note ---
Progress Note Progress Note AVSS Feels okay Ambulates freely Abdomen soft, less distended, healing nicely Urine 1500 Gastrostomy 190 Kock pouch ileo 20 enteric WBC 3700 Hgb 9.4 Imp. 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
[2017-04-21] MEDS: Potassium Chloride 40 MEQ in D5 1/4NS 1000ml 1,000 ML IV SCH ×2 (10:23→22:30)
[2017-04-21 12:00] VITALS: BP 127/77
[2017-04-21] MEDS ORDERED: Tubing IV Secondary IV ONE (15:54)
[2017-04-21 16:00] VITALS: BP 137/78
[2017-04-21] MEDS: Ketorolac 30mg Inj IV PRN (16:34)
[2017-04-21 20:00] VITALS: BP 119/67
[2017-04-21] MEDS: Iron Sucrose 100 MG in NS 55 ML IVPB SCH (20:48)
[2017-04-22] VITALS: BP 108/58
[2017-04-22 05:22] LABS: BASOPHILS % (AUTO) 0.6 % (0.0-2.0); EOSINOPHILS % (AUTO) 3.2 % (0.0-3.0); LYMPHOCYTES % (AUTO) 26.7 % (20.0-45.0); MEAN CORPUSCULAR HEMOGLOBIN 31.1 PG (27.0-31.0); MEAN CORPUSCULAR HGB CONC 33.1 G/DL (32.0-36.0); MEAN CORPUSCULAR VOLUME 94 FL (80-99); MEAN PLATELET VOLUME 6.6 FL (6.5-10.1); MONOCYTES % (AUTO) 10.6 % (1.0-10.0); NEUTROPHILS % (AUTO) 58.8 % (45.0-75.0); PLATELET COUNT 197 K/UL (150-450); RED BLOOD COUNT 3.28 M/UL (4.20-5.40); RED CELL DISTRIBUTION WIDTH 11.7 % (11.6-14.8); WHITE BLOOD COUNT 4.1 K/UL (4.8-10.8)
[2017-04-22 05:35] LABS: ANION GAP 12 (5-15); CARBON DIOXIDE 25 mEQ/L (20-30); CHLORIDE 101 mEQ/L (98-107); CREATININE 0.7 mg/dL (0.5-0.9); GLOMERULAR FILTRATION RATE > 60 mL/min (>60); HEMOLYSIS 3; POTASSIUM 4.1 mEQ/L (3.4-4.9); SODIUM 138 mEQ/L (135-145)
[2017-04-22 08:00] VITALS: BP 103/66
[2017-04-22] MEDS: Modafinil 100mg tab ORAL SCH (08:10)
[2017-04-22] MEDS: Esomeprazole sodium 40mg vial IVP SCH (08:24)
[2017-04-22] MEDS: Potassium Chloride 40 MEQ in D5 1/4NS 1000ml 1,000 ML IV SCH ×2 (10:21→11:30)
--- NOTE | 2017-04-22 11:10 | General Progress Note ---
Progress Note Progress Note AVSS Nausea is improved. Tolerating clear liquids with gastrostomy to drainage Abdomen soft, healing nicely Urine 2650 Gastrostomy 565 Kock pouch ileo 415 WBC 4100 Hgb up 10.2 BMP - wnl Imp. Improved Plan: Gastrostomy 5:1 and continue clear liquids decrease IV fluids to 50cc/hr continue DIANE Rosas Apr 22, 2017 11:10
[2017-04-22] MEDS ORDERED: LORazepam 1mg tab SL PRN ×2 (11:15→20:00)
[2017-04-22 12:00] VITALS: BP 111/69
[2017-04-22] MEDS: Ketorolac 30mg Inj IV PRN (15:26)
[2017-04-22 16:00] VITALS: BP 102/57
[2017-04-22 20:00] VITALS: BP 127/74
[2017-04-22] MEDS: Dyna-Hex 2% Top Sol 8oz TOPIC SCH (21:22)
[2017-04-22] MEDS: Iron Sucrose 100 MG in NS 55 ML IVPB SCH (21:22)
[2017-04-23] VITALS: BP 100/60
[2017-04-23 04:00] VITALS: BP 99/54
[2017-04-23] MEDS: Ketorolac 30mg Inj IV PRN (04:55)
[2017-04-23] MEDS: Potassium Chloride 40 MEQ in D5 1/4NS 1000ml 1,000 ML IV SCH (05:41)
[2017-04-23] MEDS: Modafinil 100mg tab ORAL SCH (08:22)
[2017-04-23] MEDS: Esomeprazole sodium 40mg vial IVP SCH (08:22)
[2017-04-23 08:23] VITALS: BP 110/64
--- NOTE | 2017-04-23 08:56 | General Progress Note ---
Progress Note Progress Note AVSS Tolerating clear liquids with gastrostomy 5:1 protocol and doing well Abdomen soft, healing nicely Urine 2715 Gastrostomy 190 Kock Pouch ileo 685 Imp. Improving Plan: D/C IV fluids Full liquid diet Plug gastrostomy continuously as tolerated Maintain continuous drainage of Kock Pouch continent ileostomy f/u labs in DIANE KEATING Apr 23, 2017 08:56
[2017-04-23 12:28] VITALS: BP 122/67
[2017-04-23] MEDS: TransDerm Scop 1mg/72HR Patch TDERMAL SCH (13:25)
[2017-04-23 16:36] VITALS: BP 96/56
[2017-04-23 20:00] VITALS: BP 97/49
[2017-04-23] MEDS: Dyna-Hex 2% Top Sol 8oz TOPIC SCH ×3 (21:00→22:42)
[2017-04-23] MEDS: Iron Sucrose 100 MG in NS 55 ML IVPB SCH (21:22)
[2017-04-24] VITALS: BP 87/47
[2017-04-24 04:00] VITALS: BP 90/47
[2017-04-24 04:43] LABS: BASOPHILS % (AUTO) 0.4 % (0.0-2.0); EOSINOPHILS % (AUTO) 1.7 % (0.0-3.0); LYMPHOCYTES % (AUTO) 23.5 % (20.0-45.0); MEAN CORPUSCULAR HEMOGLOBIN 31.2 PG (27.0-31.0); MEAN CORPUSCULAR HGB CONC 33.1 G/DL (32.0-36.0); MEAN CORPUSCULAR VOLUME 94 FL (80-99); MEAN PLATELET VOLUME 6.7 FL (6.5-10.1); MONOCYTES % (AUTO) 6.5 % (1.0-10.0); NEUTROPHILS % (AUTO) 67.9 % (45.0-75.0); PLATELET COUNT 279 K/UL (150-450); RED BLOOD COUNT 3.62 M/UL (4.20-5.40); RED CELL DISTRIBUTION WIDTH 12.1 % (11.6-14.8); WHITE BLOOD COUNT 6.1 K/UL (4.8-10.8)
[2017-04-24 05:10] LABS: ANION GAP 13 (5-15); CALCIUM 9.6 mg/dL (8.6-10.2); CARBON DIOXIDE 26 mEQ/L (20-30); CHLORIDE 100 mEQ/L (98-107); CREATININE 0.8 mg/dL (0.5-0.9); GLOMERULAR FILTRATION RATE > 60 mL/min (>60); HEMOLYSIS 6; POTASSIUM 4.4 mEQ/L (3.4-4.9); SODIUM 139 mEQ/L (135-145)
[2017-04-24 08:17] VITALS: BP 102/53
--- NOTE | 2017-04-24 08:27 | General Progress Note ---
Progress Note Progress Note Tmax 99.6 VSS Feels well tolerating full liquids with gastrostomy plugged Abdomen soft, healing nicely Urine 1100 Kock pouch ileo 1640 WBC 6100 Hgb 11.3 BUN 6 Cr 0.8 Imp. Improving Plan: BCIR low residue diet d/c scopolamine transderm patch maintain continuous drainage of Kock Pouch with q3h flushing by DIANE Nguyen Apr 24, 2017 08:27
[2017-04-24] MEDS: Esomeprazole sodium 40mg vial IVP SCH (09:05)
[2017-04-24] MEDS: Modafinil 100mg tab ORAL SCH (09:05)
[2017-04-24 11:53] VITALS: BP 86/53
[2017-04-24] MEDS: Ketorolac 30mg Inj IV PRN (15:19)
[2017-04-24 16:00] VITALS: BP 101/59
[2017-04-24 20:21] VITALS: BP 96/57
[2017-04-24] MEDS: Dyna-Hex 2% Top Sol 8oz TOPIC SCH (21:04)
[2017-04-24] MEDS: Iron Sucrose 100 MG in NS 55 ML IVPB SCH (21:04)
[2017-04-25 00:37] VITALS: BP 97/59
[2017-04-25 04:28] VITALS: BP 99/70
[2017-04-25 08:00] VITALS: BP 104/68
[2017-04-25] MEDS: Modafinil 100mg tab ORAL SCH (08:28)
[2017-04-25] MEDS: Esomeprazole sodium 40mg vial IVP SCH (08:29)
--- NOTE | 2017-04-25 10:02 | General Progress Note ---
Progress Note Progress Note Tmax 100 c/o bloating after eating BCIR low residue diet yesterday. Also c/o tongue coated ABdomen now distended and tympanitic. Incision clean, stoma healing Urine 1125 BCIR ileo 1640 but scant since early AM Imp. Partial small bowel obstruction Plan: NPO, IV fluids, gastrostomy to drainage Diflucan 150mg po x 1 labs in AM DIANE GREENE Apr 25, 2017 10:02
[2017-04-25] MEDS ORDERED: Fluconazole 100mg tab ORAL ONE (10:30)
[2017-04-25 10:59] LABS: APPEARANCE,URINE SLIGHTLY CLOUDY; KETONES,URINE NEGATIVE (NEGATIVE); LEUKOCYTE ESTERASE ,URINE 1+ (NEGATIVE); NITRITE,URINE NEGATIVE (NEGATIVE); PH,URINE 5 (4.5-8.0); PROTEIN,URINE 1+ (NEGATIVE); UROBILINOGEN,URINE NORMAL MG/DL (0.0-1.0)
[2017-04-25 11:12] LABS: BACTERIA,URINE FEW /HPF; MUCUS,URINE MODERATE /LPF (NONE/OCC); SQUAMOUS EPITHELIAL CELL,UR MANY /LPF (NONE/OCC)
[2017-04-25] MEDS ORDERED: D5 1/4NS w/KCl 20mEq 1,000 ML IV SCH (11:30)
[2017-04-25 12:00] VITALS: BP 131/78
[2017-04-25 16:00] VITALS: BP 107/71
[2017-04-25] MEDS ORDERED: Sterile Water Irrig 1000ml IRRIG ONE (17:28)
[2017-04-25] MEDS ORDERED: NS Irrig 1000ml ONE (17:28)
[2017-04-25] MEDS ORDERED: Tubing IV Secondary IV ONE (17:28)
[2017-04-25] MEDS: D5 1/4NS w/KCl 20mEq 1,000 ML IV SCH (18:28)
[2017-04-25 20:00] VITALS: BP 109/75
[2017-04-25] MEDS: Dyna-Hex 2% Top Sol 8oz TOPIC SCH (21:00)
[2017-04-26] VITALS: BP 112/75
[2017-04-26] MEDS: Ketorolac 30mg Inj IV PRN (00:16)
[2017-04-26] MEDS: D5 1/4NS w/KCl 20mEq 1,000 ML IV SCH ×3 (03:10→17:47)
[2017-04-26 04:00] VITALS: BP 104/64
[2017-04-26 05:41] LABS: BASOPHILS % (AUTO) 0.8 % (0.0-2.0); EOSINOPHILS % (AUTO) 1.6 % (0.0-3.0); LYMPHOCYTES % (AUTO) 21.9 % (20.0-45.0); MEAN CORPUSCULAR HEMOGLOBIN 32.3 PG (27.0-31.0); MEAN CORPUSCULAR HGB CONC 34.1 G/DL (32.0-36.0); MEAN CORPUSCULAR VOLUME 95 FL (80-99); MEAN PLATELET VOLUME 6.5 FL (6.5-10.1); MONOCYTES % (AUTO) 9.8 % (1.0-10.0); PLATELET COUNT 340 K/UL (150-450); RED CELL DISTRIBUTION WIDTH 12.3 % (11.6-14.8); WHITE BLOOD COUNT 5.9 K/UL (4.8-10.8)
[2017-04-26 06:06] LABS: ALANINE AMINOTRANSFERASE 21 U/L (3-33); ALBUMIN/GLOBULIN RATIO 1.1 (1.0-2.7); ASPARTATE AMINO TRANSFERASE 21 U/L (5-40); CALCIUM 9.8 mg/dL (8.6-10.2); CARBON DIOXIDE 21 mEQ/L (20-30); CHLORIDE 100 mEQ/L (98-107); CREATININE 0.8 mg/dL (0.5-0.9); GLOMERULAR FILTRATION RATE > 60 mL/min (>60); HEMOLYSIS 3; LIPASE 75 U/L (< 60); SODIUM 134 mEQ/L (135-145); TOTAL PROTEIN 7.4 g/dL (6.6-8.7)
[2017-04-26 06:14] LABS: ANION GAP 13 (5-15); POTASSIUM 4.9 mEQ/L (3.4-4.9)
[2017-04-26 08:00] VITALS: BP 103/70
[2017-04-26] MEDS: Modafinil 100mg tab ORAL SCH (08:26)
[2017-04-26] MEDS: Esomeprazole sodium 40mg vial IVP SCH (08:54)
--- NOTE | 2017-04-26 08:54 | General Progress Note ---
Progress Note Progress Note AVSS No low grade fever. Feeling better but still bloated Abdomen soft, mild distention persists. 1/3 kristi removed Urine 1375 Gastrostomy scant Kock pouch ileo - 880cc overnight with odor WBC 5900 Hgb 13.6 BMP - wnl BUN 7 Cr 0.8 Albumin 3.9 lipase 75 (less than 60 is normal) Urine C&S + but awaiting identification of organisms/sensitivities Imp. Partial small bowel obstruction resolving Plan: continue NPO today stool for C. diff toxin DIANE GREENE Apr 26, 2017 08:54
[2017-04-26] MEDS ORDERED: D5 1/4NS w/KCl 20mEq 1,000 ML IV SCH (11:30)
[2017-04-26 12:00] VITALS: BP 119/76
[2017-04-26 16:00] VITALS: BP 107/69
[2017-04-26 20:00] VITALS: BP 109/70
[2017-04-26] MEDS: Dyna-Hex 2% Top Sol 8oz TOPIC SCH (21:00)
[2017-04-27] MEDS: D5 1/4NS w/KCl 20mEq 1,000 ML IV SCH ×3 (01:30→17:36)
[2017-04-27] MEDS: Esomeprazole sodium 40mg vial IVP SCH (08:32)
[2017-04-27] MEDS: Modafinil 100mg tab ORAL SCH (08:32)
[2017-04-27 08:40] VITALS: BP 106/65
[2017-04-27] MEDS ORDERED: NS Irrig 1000ml ONE (09:01)
--- NOTE | 2017-04-27 09:04 | General Progress Note ---
Progress Note Progress Note AVSS Feeling better and less bloated. Having excessive drainage peristomal ? watery mucous Abdomen softer, less distended, incision clean, stoma healing Urine 2800 Gastrostomy 140 Kock pouch ileo 95 day; 400 overnight = 495. C. difficile toxin - negative Imp. Persistent partial SBO - ? resolving Peristomal drainage of Kock Pouch UTI with E.coli and Klebsiella most sensitive to Cipro Plan: STAT CT scan abd+pelvis with oral and IV contrast Cipro 400mg IV STAT and q12h If unable to resume po intake with start TPN DIANE GREENE Apr 27, 2017 09:03
[2017-04-27 10:28] LABS: PROTHROMBIN TIME 10.7 SEC (9.30-11.50)
[2017-04-27] MEDS ORDERED: Ketorolac 30mg Inj IV PRN (11:15)
[2017-04-27 12:00] VITALS: BP 109/74
[2017-04-27 16:00] VITALS: BP 116/76
[2017-04-27 20:41] VITALS: BP 97/64
[2017-04-27] MEDS: Dyna-Hex 2% Top Sol 8oz TOPIC SCH (21:00)
[2017-04-28] VITALS (7 sets, daily range): BP systolic 93–119; BP diastolic 59–81
[2017-04-28] MEDS: D5 1/4NS w/KCl 20mEq 1,000 ML IV SCH (01:30)
[2017-04-28] MEDS: Esomeprazole sodium 40mg vial IVP SCH (08:10)
[2017-04-28] MEDS: Modafinil 100mg tab ORAL SCH (08:10)
--- NOTE | 2017-04-28 08:28 | General Progress Note ---
Progress Note Progress Note AVSS Abdominal distention and cramping all resolved. CT scan abd+pelvis - negative for obstruction/ fluid collections. Tolerating clear liquids Abdomen soft, kristi removed and steristrips applied Urine 2375 Gastrostomy 70 (5:1) Kock pouch ileo 1065 Imp. Partial SBO resolved Plan: BCIR flow residue diet D/C IV fluids; change Nexium to po continue IV Cipro 1 more day then po plug gastrostomy continuously DIANE GREENE Apr 28, 2017 08:28
--- NOTE | 2017-04-28 08:45 | Diagnostic Imaging Report ---
Clinical Indication: Abdominal distention, malfunctioning continent ileostomy pouch Technique: Patient ingested oral contrast. IV administration nonionic contrast. Venous phase spiral acquisition obtained through the abdomen and pelvis. Multiplanar reconstructions were generated. Total dose length product 844 mGycm. CTDIvol(s) 17 mGy. Dose reduction achieved using automated exposure control Comparison: 04/19/2016 Findings: Again demonstrated is a right lower quadrant continent ileostomy, which is catheterized. The pouch is lumen collapsed around the catheter, but contrast is seen within the catheter lumen. Contrast is seen throughout the entirety of the small bowel. The small bowel is mildly dilated distally. Overall degree of distention is decreased from the prior exam and the proximal dilatation seen previously is not evident currently. Again demonstrated is a very short rectal stump which contains a small amount of fluid. This appearance is similar to the prior exam. The colon is surgically absent. There are midline skin kristi. No incisional or periincisional fluid is demonstrated. Again demonstrated is a gastrostomy which is in good position. No free or loculated intraperitoneal air or fluid is evident. The distal esophagus and duodenum are unremarkable. The gallbladder is mildly distended. No gallstones. The liver, bile ducts, spleen, adrenals, kidneys are unremarkable. Subtle low-attenuation in the pancreatic head appears similar to the previous exam. No evidence of enlarging mass. No retroperitoneal or mesenteric mass or adenopathy. No pelvic mass or adenopathy. The included lung bases are clear. The bones are unremarkable except for degenerative changes of the lumbosacral junction, stable. Compared to prior exam, the degree of stranding surrounding the continent ileostomy site has essentially resolved. Previously demonstrated urinary bladder gas is no longer evident. Impression: Postsurgical changes, as described, status post colectomy, continent ileostomy and evidence of recent revision No evidence of small bowel obstruction. Ingested contrast has traversed the entirety of the small bowel and entered the ileostomy pouch Gastrostomy again demonstrated Incidental finding of lumbosacral spondylosis This agrees with the preliminary interpretation provided overnight by [facility]erad[facility]. The CT scanner at [facility] is accredited by the [employer] and the scans are performed using protocols designed to limit radiation exposure to as low as reasonably achievable to attain images of sufficient resolution adequate for diagnostic evaluation.
[2017-04-28] MEDS ORDERED: LORazepam 1mg tab SL PRN ×2 (09:00)
[2017-04-28] MEDS ORDERED: Silver Nitrate Stick TOPIC ONE (10:30)
[2017-04-28] MEDS: Dyna-Hex 2% Top Sol 8oz TOPIC SCH ×2 (21:00→21:19)
[2017-04-29 04:00] VITALS: BP 99/68
[2017-04-29 08:00] VITALS: BP 103/69
[2017-04-29] MEDS: Modafinil 100mg tab ORAL SCH (08:23)
--- NOTE | 2017-04-29 08:57 | General Progress Note ---
Progress Note Progress Note AVSS Tolerating BCIR low residue diet with gastrostomy plugged. Abdomen soft, nicely healed AgNO3 to stoma area Urine 1500 BCIR ileo 1665 BCIR ileo catheter removed - reinserts easily Imp. doing well Plan: RN supervised BCIR self-intubations q3h am to hs and prn D/C PIC line after next dose of IV Cipro I will remove gastrostomy later this AM Anticipate discharge in AM if intubates without difficulty DIANE GREENE Apr 29, 2017 08:57
[2017-04-29 12:03] VITALS: BP 101/68
[2017-04-29 16:04] VITALS: BP 102/62
[2017-04-29] MEDS ORDERED: Acetaminophen 650mg/20.3ml ORAL PRN (18:00)
[2017-04-29 20:00] VITALS: BP 110/74
[2017-04-29] MEDS: Ciprofloxacin 500mg tab ORAL SCH (21:26)
[2017-04-30] VITALS: BP 101/62
[2017-04-30 04:00] VITALS: BP 112/62
[2017-04-30 04:46] LABS: BASOPHILS % (AUTO) 0.8 % (0.0-2.0); EOSINOPHILS % (AUTO) 3.3 % (0.0-3.0); LYMPHOCYTES % (AUTO) 31.9 % (20.0-45.0); MEAN CORPUSCULAR HEMOGLOBIN 31.4 PG (27.0-31.0); MEAN CORPUSCULAR HGB CONC 33.1 G/DL (32.0-36.0); MEAN CORPUSCULAR VOLUME 95 FL (80-99); MONOCYTES % (AUTO) 8.6 % (1.0-10.0); NEUTROPHILS % (AUTO) 55.5 % (45.0-75.0); PLATELET COUNT 366 K/UL (150-450); RED BLOOD COUNT 4.01 M/UL (4.20-5.40); RED CELL DISTRIBUTION WIDTH 12.2 % (11.6-14.8)
[2017-04-30 05:03] LABS: ALANINE AMINOTRANSFERASE 26 U/L (3-33); ALBUMIN/GLOBULIN RATIO 1.1 (1.0-2.7); ANION GAP 11 (5-15); ASPARTATE AMINO TRANSFERASE 22 U/L (5-40); CALCIUM 9.9 mg/dL (8.6-10.2); CARBON DIOXIDE 27 mEQ/L (20-30); CHLORIDE 102 mEQ/L (98-107); CREATININE 0.7 mg/dL (0.5-0.9); GLOMERULAR FILTRATION RATE > 60 mL/min (>60); HEMOLYSIS 1; POTASSIUM 4.3 mEQ/L (3.4-4.9); SODIUM 140 mEQ/L (135-145); TOTAL PROTEIN 7.4 g/dL (6.6-8.7)
[2017-04-30 08:00] VITALS: BP 100/60
--- NOTE | 2017-04-30 08:14 | General Progress Note ---
Progress Note Progress Note T 100.9 yesterday at 1600. No new complaints or symptoms. PIC line had been removed in the morning Eating well. Intubating her Kock Pouch without difficulty and no incontinence Abdomen soft, nicely healed incision. Stoma with prominent mucosa - treated with AgNo3 Urine 1050 Kock pouch ileo 1000 WBC 4000 Hgb 12.6 Albumin 4 Imp. Fever ? etiology - ? related to PIC removed earlier No signs of infection with normal WBC/platelets Plan: Observe in hospital additional 24-48 hours If fever recurs will get ID consult Continue RN supervised Kock Pouch self-intubations DIANE GREENE Apr 30, 2017 08:14
[2017-04-30] MEDS: Ciprofloxacin 500mg tab ORAL SCH ×2 (08:25→21:02)
[2017-04-30] MEDS: Modafinil 100mg tab ORAL SCH (08:26)
[2017-04-30 12:00] VITALS: BP 101/68
[2017-04-30 16:00] VITALS: BP 100/54
[2017-04-30 20:00] VITALS: BP 105/65
[2017-05-01 06:40] VITALS: BP 107/71
--- NOTE | 2017-05-01 08:21 | General Progress Note ---
Progress Note Progress Note Doing well. No further fever. Blood C&S no growth Abdomen soft, well healed Intubating her Kock Pouch without difficulty Urine 1550 Kock pouch ileo 970 IMp. Doing well Plan: Discharge in AM if no fevers overnight Full supplies/limitations/instructions provided/discussed f/u 05/07 office DIANE GREENE May 01, 2017 08:21
[2017-05-01 08:23] VITALS: BP 101/65
[2017-05-01] MEDS: Modafinil 100mg tab ORAL SCH (08:34)
[2017-05-01] MEDS: Ciprofloxacin 500mg tab ORAL SCH ×2 (08:34→21:14)
[2017-05-01 11:30] VITALS: BP 110/67
[2017-05-01 16:22] VITALS: BP 112/61
[2017-05-01 20:12] VITALS: BP 100/44
[2017-05-01 22:37] VITALS: BP 101/57
[2017-05-02 00:15] VITALS: BP 116/70
[2017-05-02 04:28] VITALS: BP 112/65
[2017-05-02 08:00] VITALS: BP 100/65
[2017-05-02] MEDS: Modafinil 100mg tab ORAL SCH (08:20)
[2017-05-02] MEDS: Ciprofloxacin 500mg tab ORAL SCH (08:20)
[2017-05-02] MEDS ORDERED: NS Irrig 1000ml ONE (09:59)
== END 2017-05-02 10:00 | disposition home or self-care (01) | DRG 330 ==
LOC: SDSOVERFLO 08:33 → 3E 08:46
DX: K94.13 Enterostomy malfunction (principal); K56.60 Unspecified intestinal obstruction; N39.0 Urinary tract infection, site not specified; J98.11 Atelectasis; R50.82 Postprocedural fever; D64.9 Anemia, unspecified; B96.20 Unspecified Escherichia coli [E. coli] as the cause of diseases classified elsewhere
CPT/HCPCS: 36415; 36569; 71010; 74177; 76937; 80048; 80053; 81001; 81003; 82607; 82728; 82746; 83540; 83550; 83690; 85025; 85610; 85730; 86850; 86900; 86901; 87040; 87086; 87181; 87324; 93005; 94003; 94150; 94760; J2250; J2405; J2710